=== PATIENT | female | born 1935 | race Caucasian/White ===

== ENCOUNTER 2018-06-12 12:53 | Inpatient (IN) | payer OTHER ==
[~2018-06-12] VITALS: Ht 154.9 cm; Wt 71.2 kg
[~2018-06-12 12:53] MED LIST: ASPIR 8181 MG; ATENOLOL50 MG PO; CORDARONE200 MG PO; COREG12.5 MG PO; COUMADIN5 MG PO; DAILY VITAMIN1 EAC3 PO; GLIPIZIDE ER2.5 M1 PO; Isosorbide Mononitrate PO; LIPITOR20 MG PO; LISINOPRIL10 MG PO; LOSARTAN POTASS25 MG PO; NORVASC10 MG PO; OMEPRAZOLE40 MG PO; Ranolazine PO; SYNTHROID75 MCG PO; VITAMIN D PO; Z.0.BENAZEPRIL HCL20 PO; Z.0.METOPROLOL SUCC5 PO; Z.0.NEURONTIN300 MG PO; Z.0.ZYRTEC10 M3 PO
[2018-06-12 13:51] LABS: BASOPHILS # (AUTO) 0.1 (0.0-0.1); BASOPHILS % 0.6 % (0.0-1.0); EOSINOPHILS # (AUTO) 0.1 (0.0-0.4); EOSINOPHILS % 0.9 % (0.0-6.0); LYMPHOCYTES # (AUTO) 1.2 (1.0-3.2); LYMPHOCYTES % 9.8 % (18.0-39.1); MEAN CORPUSCULAR HEMOGLOBIN 29.6 pg (28-32); MEAN CORPUSCULAR HGB CONC 33.3 g/dL (31-35); MEAN CORPUSCULAR VOLUME 88.9 fL (81-99); MONOCYTES # (AUTO) 0.9 (0.2-0.8); NEUTROPHILS # (AUTO) 10.3 (2.1-6.9); NEUTROPHILS % 81.3 % (38.7-80.0); PLATELET COUNT 258 x10e3/uL (140-360); RED BLOOD COUNT 4.05 x10e6/uL (3.6-5.1); RED CELL DISTRIBUTION WIDTH 13.6 % (11.7-14.4)
--- NOTE | 2018-06-12 14:00 | Diagnostic Imaging Report ---
PROCEDURE: CHEST SINGLE (PORTABLE) COMPARISON: The 07/24/2017, CT chest 07/25/2017. INDICATIONS: CHEST PAIN 1 WEEK FINDINGS: The lungs remain well-inflated. No focal consolidation, pleural effusion, or pneumothorax. 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 No pulmonary edema. No acute osseous abnormality. CONCLUSION: No acute cardiopulmonary abnormality. Dictated by: Alejandro Hurtado M.D. on 06/12/2018 at 14:05 Electronically approved by: Alejandro Hurtado M.D. on 06/12/2018 at 14:05
[2018-06-12 14:01] LABS: INR 1.86; PROTHROMBIN TIME 20.1 seconds (11.9-14.5)
[2018-06-12 14:02] LABS: PARTIAL THROMBOPLASTIN TIME 38.3 seconds (23.8-35.5)
[2018-06-12 14:10] LABS: ALBUMIN 3.5 g/dL (3.5-5.0); ALBUMIN/GLOBULIN RATIO 0.8 (0.8-2.0); ANION GAP 18.7 mmol/L (8-16); CALCIUM 9.1 mg/dL (8.4-10.2); CREATININE, SERUM 2.38 mg/dL (0.57-1.11); POTASSIUM 4.7 mmol/L (3.5-5.1)
[2018-06-12] MEDS ORDERED: WARFARIN SOD 2.5 MG TAB PO NR (14:15)
[2018-06-12 14:17] LABS: CREATINE KINASE MB 4.2 ng/mL (0-5.0)
[2018-06-12] MEDS ORDERED: NITROGLYCERIN 0.4 MG SUBL SL PRN (15:00)
[2018-06-12] MEDS ORDERED: FAMOTIDINE 20 MG TAB PO SCH (15:00)
[2018-06-12] MEDS ORDERED: ONDANSETRON HCL INJ 2 MG/ML VIAL IV PRN (15:00)
[2018-06-12] MEDS ORDERED: DIPHENHYDRAMINE HCL INJ 50 MG/ML VIAL ONE (15:48)
[2018-06-12] MEDS ORDERED: DIPHENHYDRAMINE HCL INJ 50 MG/ML VIAL IV NR (16:00)
[2018-06-12 16:15] VITALS: BP 182/79
[2018-06-12 17:05] VITALS: BP 182/79
[2018-06-12 17:17] VITALS: BP 182/79
[2018-06-12] MEDS ORDERED: ACETAMINOPHEN 325 MG TAB PO PRN (17:30)
[2018-06-12] MEDS ORDERED: MORPHINE SULFATE 2 MG/ML SYR IV PRN (17:30)
[2018-06-12] MEDS ORDERED: DEXTROSE 50% SYRINGE 50 ML IV PRN (17:30)
[2018-06-12] MEDS ORDERED: VITAMIN D 1.25 MG PO SCH (17:30)
[2018-06-12 19:05] VITALS: BP 158/67
[2018-06-12 20:32] LABS: CREATINE KINASE MB 3.9 ng/mL (0-5.0)
[2018-06-12 21:11] VITALS: BP 158/67
[2018-06-12] MEDS: INSULIN REGULAR, HUMAN 100 UNIT/1 ML 3ML VIAL SQ SCH (21:11)
[2018-06-13] VITALS (10 sets, daily range): BP systolic 123–151; BP diastolic 58–85
[2018-06-13 02:39] LABS: CREATINE KINASE MB 3.5 ng/mL (0-5.0)
[2018-06-13 05:50] LABS: BASOPHILS # (AUTO) 0.1 (0.0-0.1); BASOPHILS % 0.8 % (0.0-1.0); EOSINOPHILS # (AUTO) 0.2 (0.0-0.4); EOSINOPHILS % 2.1 % (0.0-6.0); HEMATOCRIT 33.9 % (34.2-44.1); HEMOGLOBIN 11.3 g/dL (12.0-16.0); LYMPHOCYTES # (AUTO) 1.8 (1.0-3.2); LYMPHOCYTES % 18.2 % (18.0-39.1); MEAN CORPUSCULAR HEMOGLOBIN 29.7 pg (28-32); MEAN CORPUSCULAR HGB CONC 33.3 g/dL (31-35); MEAN CORPUSCULAR VOLUME 89.2 fL (81-99); MONOCYTES % 9.7 % (4.4-11.3); NEUTROPHILS # (AUTO) 6.8 (2.1-6.9); NEUTROPHILS % 68.7 % (38.7-80.0); PLATELET COUNT 227 x10e3/uL (140-360); RED CELL DISTRIBUTION WIDTH 13.6 % (11.7-14.4)
[2018-06-13 06:03] LABS: INR 2.17; PROTHROMBIN TIME 22.7 seconds (11.9-14.5)
[2018-06-13 06:19] LABS: CREATINE KINASE MB 3.6 ng/mL (0-5.0)
[2018-06-13 06:33] LABS: ANION GAP 14.2 mmol/L (8-16); CALCIUM 8.9 mg/dL (8.4-10.2); CREATININE, SERUM 2.42 mg/dL (0.57-1.11); POTASSIUM 4.2 mmol/L (3.5-5.1)
[2018-06-13] MEDS: PANTOPRAZOLE SOD 40 MG TABEC PO SCH (07:30)
[2018-06-13] MEDS: INSULIN REGULAR, HUMAN 100 UNIT/1 ML 3ML VIAL SQ SCH ×4 (07:30→20:32)
[2018-06-13] MEDS: GLIPIZIDE 5 MG TAB ER PO SCH (08:00)
--- NOTE | 2018-06-13 08:58 | Consultation ---
DATE OF CONSULTATION: June 12, 2018 CARDIOLOGY CONSULTATION REQUESTING PHYSICIAN: Dr. Curran REASON FOR CONSULTATION: Chest pain. HPI: This is a pleasant, 82-year-old female that presented with chest pain. According to the patient, for the last 4 to 5 days, she has been having chest tightness that felt like dull heaviness at the center of the chest. She said the pain has been going on. It comes and it goes, and she decided to come into the emergency room for evaluation. She has a history of CAD with 2 stents placed in the past. Her it support manager is Dr. Weir at [facility], and it has been over 5 years since she had her last cardiac stress test. She denies any palpitations, any dizziness, any diaphoresis or headache. Troponin times 2 was negative. EKG showed sinus rhythm with no ST abnormalities. PAST MEDICAL HISTORY: CKD, paroxysmal Afib, hypothyroidism, hypertension, diabetes, hyperlipidemia and CAD. PAST SURGICAL HISTORY: Hysterectomy, cholecystectomy and cardiac stents times 2. FAMILY HISTORY: Positive for CAD. SOCIAL HISTORY: No smoking. No drinking. She lives at home with her daughter. MEDICATIONS: See med list. ALLERGIES: SHE IS ALLERGIC TO SULFA AND NITROFURANTOIN. REVIEW OF SYSTEMS: Negative, except as mentioned above. PHYSICAL EXAMINATION GENERAL: She is awake, alert and oriented times 3. VITALS: Temperature 98, heart rate 80, blood pressure 126/85, respirations 21. Oxygen saturation 96% on room air. HEENT: Mucous membranes moist. NECK: Supple. LUNGS: Bilaterally clear to auscultation. CARDIOVASCULAR: S1 and S2 present but irregular. ABDOMEN: Soft. EXTREMITIES: No edema. NEUROLOGIC: Intact. LABS: Sodium 140, potassium 4.2, chloride 109, CO2 21. BUN 38, creatinine 2.42. Glucose 112. White blood cells 9.91, hemoglobin 11.3, hematocrit 33.9, platelets 227. PT 22.7, PTT 38.3, INR 2.17. IMPRESSION 1. Chest pain. 2. Hypertension. 3. Coronary artery disease with stents. 4. History of paroxysmal atrial fibrillation and was anticoagulated with Coumadin. 5. Chronic kidney disease. 6. Diabetes. 7. Hyperlipidemia. 8. Hypothyroidism. ASSESSMENT AND PLAN: We will go ahead and check serial cardiac enzymes due to her symptoms and comorbidities. Will go ahead and set her up for [email or web address]. Will follow up based on the outcome of the Lexiscan stress test. We will go ahead and put the Coumadin on hold for now. Her heart rate is controlled. Will keep her n.p.o. and consent for stress test. Further cardiac workup pending clinical course. Thank you for this consultation. Dictated by Александр Craft NP. Job#: [id number]
[2018-06-13] MEDS: ASPIRIN 81 MG ENTERIC COATED PO SCH (09:00)
[2018-06-13] MEDS: ASPIRIN 81 MG CHEW TAB PO SCH (09:00)
[2018-06-13] MEDS ORDERED: REGADENOSON 0.4 MG/5 ML SYR IV ONE (09:32)
[2018-06-13] MEDS ORDERED: VIT D PO SCH (10:00)
--- NOTE | 2018-06-13 10:42 | History and Physical ---
PRIMARY CARE PHYSICIAN: [facility], Dr. Olvera. REASON FOR ADMISSION: Chest pain. HISTORY OF PRESENT ILLNESS: Ms. Claudia Cali is an 82-year-old female. She has a past medical history of hypertension, type 2 diabetes mellitus, hyperlipidemia, coronary artery disease, status post PCI, CKD, stage 4, and history of paroxysmal atrial fibrillation, on Coumadin for anticoagulation. She has followup with cardiology at [facility]. She presented to the emergency room yesterday evening secondary to episodic chest pain that has started about 3 days ago, which is intermittent and feels like pressure-like sensation, but denies any nausea, vomiting or any respiratory distress. EKG did not show any abnormality. She had serial troponins done that has been negative. Dr. Baires has seen her in the past, and he was consulted for evaluation. The patient is scheduled for stress test this morning. Currently, she is chest pain free. EKG showed evidence of sinus rhythm. REVIEW OF SYSTEM GENERAL: She is afebrile. Denies any focal weakness. HEENT: Eyes: No blurry vision. ENT: Denies any ear, nose, throat pain, or drainage. CARDIOVASCULAR: Does have chest pain. Denies any palpitations or syncopal episodes. RESPIRATORY: Denies any cough, shortness of breath, or acute infection. GI: Denies any nausea, vomiting, abdominal pain, or diarrhea. NEURO: Denies any headaches, dizziness or focal weakness. : Denies any dysuria, urinary frequency or urgency. MUSCULOSKELETAL: Denies any joint pain or swelling. INTEGUMENTARY: Denies any ulcers or rash. PAST MEDICAL HISTORY: Includes hypertension, type 2 diabetes mellitus, hyperlipidemia, CKD, stage 4, paroxysmal atrial fibrillation, CAD. PAST SURGICAL HISTORY: History of cholecystectomy and also stent placement. SOCIAL HISTORY: She lives at home with her daughter. No history of smoking, alcohol or drug use. ALLERGIES: SULFA DRUGS AND ALSO MACROBID. Hemoglobin A1c is pending at this time. INR is 2.17. ASSESSMENT: An 82-year-old female with: 1. Chest pain: Rule out for acute coronary syndrome. Scheduled for stress test today. 2. History of coronary artery disease: Status post percutaneous coronary intervention. 3. Paroxysmal atrial fibrillation: On Coumadin for anticoagulation. 4. Type 2 diabetes mellitus: Hemoglobin A1c is pending at this time. 5. Hyperlipidemia. 6. History of chronic kidney disease, stage 4. PLAN: The patient will be under observation status. Troponins have been negative thus far. CKD has been stable. Home medications have been resumed. Cardiology, Dr. Baires, has been consulted. She is scheduled for a stress test. Once cleared by cardiology, if the stress test is negative, she will likely be discharged home today. I have discussed with the patient regarding the code status. He is a full code. Her decision-maker is her daughter. Job#: [id number] [place] cc: DR. OLVERA AT [facility]
[2018-06-13] MEDS: ISOSORBIDE MONONITRATE 30 MG TAB CR PO SCH (12:00)
[2018-06-13] MEDS: ATENOLOL 50 MG TAB PO SCH (12:02)
[2018-06-13] MEDS: MULTIVITAMINS/MINERALS TAB PO SCH (12:02)
[2018-06-13] MEDS: AMLODIPINE BESYLATE 10 MG TAB PO SCH (12:02)
--- NOTE | 2018-06-13 13:49 | Discharge Summary ---
Please cancel the DC summary MTDD
[2018-06-13] MEDS: SODIUM CHLORIDE 0.9% 1000ML 1,000 ML IV SCH (17:00)
[2018-06-13] MEDS ORDERED: WARFARIN SOD 5 MG TAB PO SCH (17:00)
[2018-06-13] MEDS: ENOXAPARIN 30 MG/0.3 ML SYR SC SCH (17:19)
[2018-06-13] MEDS: ACETYLCYSTEINE 200 MG/1 ML 10ML VIAL PO SCH ×2 (21:00→21:05)
[2018-06-14] VITALS (7 sets, daily range): BP systolic 130–176; BP diastolic 63–74
[2018-06-14] MEDS: SODIUM CHLORIDE 0.9% 1000ML 1,000 ML IV SCH (01:25)
[2018-06-14 05:33] LABS: BASOPHILS # (AUTO) 0.1 (0.0-0.1); BASOPHILS % 0.8 % (0.0-1.0); EOSINOPHILS # (AUTO) 0.2 (0.0-0.4); EOSINOPHILS % 2.7 % (0.0-6.0); HEMATOCRIT 33.7 % (34.2-44.1); HEMOGLOBIN 10.9 g/dL (12.0-16.0); LYMPHOCYTES # (AUTO) 1.9 (1.0-3.2); MEAN CORPUSCULAR HEMOGLOBIN 29.8 pg (28-32); MEAN CORPUSCULAR HGB CONC 32.3 g/dL (31-35); MEAN CORPUSCULAR VOLUME 92.1 fL (81-99); MONOCYTES # (AUTO) 0.8 (0.2-0.8); MONOCYTES % 9.6 % (4.4-11.3); NEUTROPHILS # (AUTO) 5.4 (2.1-6.9); NEUTROPHILS % 63.4 % (38.7-80.0); PLATELET COUNT 214 x10e3/uL (140-360); RED BLOOD COUNT 3.66 x10e6/uL (3.6-5.1); RED CELL DISTRIBUTION WIDTH 13.3 % (11.7-14.4)
[2018-06-14 05:48] LABS: INR 2.25; PROTHROMBIN TIME 23.4 seconds (11.9-14.5)
[2018-06-14 05:54] LABS: ALBUMIN 2.9 g/dL (3.5-5.0); ALBUMIN/GLOBULIN RATIO 0.9 (0.8-2.0); ANION GAP 14.3 mmol/L (8-16); CALCIUM 8.5 mg/dL (8.4-10.2); CREATININE, SERUM 2.3 mg/dL (0.57-1.11); POTASSIUM 4.3 mmol/L (3.5-5.1)
[2018-06-14] MEDS: INSULIN REGULAR, HUMAN 100 UNIT/1 ML 3ML VIAL SQ SCH ×4 (07:30→20:34)
[2018-06-14] MEDS: ASPIRIN 81 MG ENTERIC COATED PO SCH (09:00)
[2018-06-14 09:52] LABS: CLARITY,URINE CLOUDY (CLEAR); COLOR,URINE YELLOW (YELLOW); KETONES,URINE NEGATIVE (NEGATIVE); LEUKOCYTE ESTERASE ,URINE 2+ (NEGATIVE); NITRITE,URINE NEGATIVE (NEGATIVE); PROTEIN,URINE DIPSTICK 1+ (NEGATIVE)
[2018-06-14 09:53] LABS: BILIRUBIN,URINE NEGATIVE (NEGATIVE); URINE UROBILINOGEN 0.2 mg/dL (0.2 - 1)
[2018-06-14 10:06] LABS: WBC,URINE (MAN) >50 /HPF (0-5)
[2018-06-14 10:11] LABS: BACTERIA,URINE MODERATE /HPF; EPITHELIAL CELLS,URINE MODERATE /LPF; TRANSITIONAL EPI CELLS,URINE FEW
--- NOTE | 2018-06-14 14:35 | Cardiology Report ---
DATE OF STUDY: June 13, 2018 LEXISCAN NUCLEAR STRESS TEST INDICATIONS: Chest pain. DESCRIPTION OF PROCEDURE: After informed consent, patient was brought to the stress lab. She was given 11 mCi of technetium 99 Myoview, and myocardial perfusion SPECT images were obtained in the horizontal long and short axis and vertical long axis. Subsequently, patient was given 0.4 mg Lexiscan over 10 seconds. Patient was given 27 mCi of technetium 99 Myoview, and myocardial perfusion SPECT images obtained in horizontal long and short axis and vertical long axis. Gated images were also obtained. Patient tolerated the procedure without any complications. REPORT: Baseline EKG shows sinus rhythm, 69 beats per minute, normal axis, normal intervals. No acute ST-T changes. PARAMETERS 1. Resting heart rate 63 beats per minute. 2. Maximum heart rate 97 beats per minute. 3. Resting blood pressure 179/65 mmHg. 4. Maximum blood pressure 184/59 mmHg. REASON FOR TERMINATION: End point attained. INTERPRETATION 1. Negative for chest pain. 2. Negative for arrhythmias. 3. Blood pressure response consistent with Lexiscan. 4. No significant ST-T changes seen during Lexiscan infusion compared to baseline. 5. Analysis of SPECT images reveals a small area of decreased radioisotope uptake in the apical wall during stress which reverses during rest. CONCLUSIONS 1. This study demonstrates small area of apical wall ischemia. 2. No wall motion abnormalities noted. 3. Overall ejection fraction is 71%. Job#: [id number] FRANCIS
[2018-06-14] MEDS: ATENOLOL 50 MG TAB PO SCH (16:00)
[2018-06-14] MEDS: GLIPIZIDE 5 MG TAB ER PO SCH (16:00)
[2018-06-14] MEDS: PANTOPRAZOLE SOD 40 MG TABEC PO SCH (16:00)
[2018-06-14] MEDS: AMLODIPINE BESYLATE 10 MG TAB PO SCH (16:00)
[2018-06-14] MEDS: ISOSORBIDE MONONITRATE 30 MG TAB CR PO SCH (16:00)
[2018-06-14] MEDS: ACETYLCYSTEINE 200 MG/1 ML 10ML VIAL PO SCH ×2 (16:00→21:00)
[2018-06-14] MEDS: ASPIRIN 81 MG CHEW TAB PO SCH (16:00)
[2018-06-14] MEDS: MULTIVITAMINS/MINERALS TAB PO SCH (16:00)
[2018-06-14] MEDS: ENOXAPARIN 30 MG/0.3 ML SYR SC SCH (16:24)
--- NOTE | 2018-06-14 18:43 | Consultation ---
DATE OF CONSULTATION: June 14, 2018 HISTORY OF PRESENT ILLNESS: This is an 82-year-old female known to our nephrology service. She sees my associate, Dr. Coe, for chronic kidney disease stage 4. Has history of prior CA, history of a percutaneous intervention with 2 stents in the past. Here lately she has been having dyspnea on exertion with no chest pain. Has been admitted with plans for possible cardiac cath. Renal has been consulted for evaluation of kidney failure as well as evaluate the risk for cardiac cath. Patient awake and alert. Denies any nausea, vomiting, headache, fever, chills, chest pain or shortness of breath. Currently on ondansetron, pantoprazole, insulin, isosorbide, glipizide, Enoxaparin, , aspirin, amlodipine and Tylenol p.r.n. For dose schedule please see EMR. ALLERGIES: TO SULFA AND NITROFURANTOIN. PAST MEDICAL HISTORY: Type 2 diabetes. Coronary artery disease. Chronic kidney disease stage 4. Hypertensive diabetic nephropathy. SOCIAL HISTORY: Does not smoke or drink. FAMILY HISTORY: Significant for hypertension. Patient is also on Coumadin for atrial fibrillation. PHYSICAL EXAMINATION: GENERAL: Awake, alert, laying supine and in no apparent distress. VITALS: Blood pressure 153/63, pulse rate 54, afebrile. The patient's heart rhythm is regular and pulse is regular. Respiratory rate 14. HEAD AND NECK: Corneae clear. Mucosa moist. Neck veins flat. LUNGS: Clear. No rales. HEART: Soft 1-2/6 ejection systolic murmur heard over the left and right sternal border and mitral area. No gallops. ABDOMEN: Soft and nontender. LOWER EXTREMITY EXAMINATION: No edema. IMPRESSION 1. Coronary artery disease with dyspnea on exertion. 2. Underlying chronic kidney disease stage 4. RECOMMENDATIONS: Patient at moderate to high risk for dye-induced nephropathy. Discussed with patient. Discussed with Dr. Baires. He will then review stress test results with the patient tomorrow and then decide whether they are going to proceed with cardiac cath or not. Risk of kidney failure from contrast nephropathy and possibility of dialysis temporary or permanent has been discussed with the patient. Job#: [id number]
[2018-06-15 00:25] VITALS: BP 133/78
[2018-06-15 04:00] VITALS: BP 135/65
[2018-06-15 05:30] LABS: INR 1.83; PROTHROMBIN TIME 19.9 seconds (11.9-14.5)
[2018-06-15 05:43] LABS: ANION GAP 12.6 mmol/L (8-16); CALCIUM 8.6 mg/dL (8.4-10.2); CREATININE, SERUM 2.01 mg/dL (0.57-1.11); POTASSIUM 4.6 mmol/L (3.5-5.1)
[2018-06-15] MEDS: INSULIN REGULAR, HUMAN 100 UNIT/1 ML 3ML VIAL SQ SCH ×2 (07:30→11:30)
[2018-06-15 08:00] VITALS: BP 142/64
[2018-06-15] MEDS: MULTIVITAMINS/MINERALS TAB PO SCH (09:00)
[2018-06-15] MEDS: ATENOLOL 50 MG TAB PO SCH (09:00)
[2018-06-15] MEDS: ASPIRIN 81 MG ENTERIC COATED PO SCH (09:00)
[2018-06-15] MEDS: GLIPIZIDE 5 MG TAB ER PO SCH (09:00)
[2018-06-15] MEDS: PANTOPRAZOLE SOD 40 MG TABEC PO SCH (09:00)
[2018-06-15] MEDS: ASPIRIN 81 MG CHEW TAB PO SCH (09:00)
[2018-06-15] MEDS: AMLODIPINE BESYLATE 10 MG TAB PO SCH (09:00)
[2018-06-15] MEDS: ISOSORBIDE MONONITRATE 30 MG TAB CR PO SCH (09:00)
[2018-06-15 12:00] VITALS: BP 136/67
[2018-06-15] MEDS ORDERED: CIPRO500 MG PO (14:23)
[2018-06-15] MEDS ORDERED: WARFARIN SOD 5 MG TAB PO SCH (17:00)
[2018-06-15] MEDS ORDERED: ATORVASTATIN 20 MG TAB PO SCH (21:00)
== END 2018-06-15 15:25 | disposition home or self-care (01) | DRG 313 ==
LOC: ER 12:53 → ERHOLD 15:01 → IMCU 15:55 → OBSVTOIN 06-14 10:11 → MED/SURG2 06-14 11:08
PROVIDERS: ADMIT Internal Medicine; ATTEND Internal Medicine
DX: R07.9 Chest pain, unspecified (principal); I13.0 Hypertensive heart and chronic kidney disease with heart failure and stage 1 through stage 4 chronic kidney disease, or unspecified chronic kidney disease; N18.4 Chronic kidney disease, stage 4 (severe); I25.89 Other forms of chronic ischemic heart disease; I25.10 Atherosclerotic heart disease of native coronary artery without angina pectoris; I50.9 Heart failure, unspecified; Z95.5 Presence of coronary angioplasty implant and graft; I48.0 Paroxysmal atrial fibrillation; Z79.01 Long term (current) use of anticoagulants; E78.5 Hyperlipidemia, unspecified; Z88.3 Allergy status to other anti-infective agents; Z88.2 Allergy status to sulfonamides; E03.9 Hypothyroidism, unspecified; I25.2 Old myocardial infarction; E11.21 Type 2 diabetes mellitus with diabetic nephropathy; R94.39 Abnormal result of other cardiovascular function study
CPT/HCPCS: 36415; 71045; 78452; 80048; 80053; 80061; 81001; 82550; 82553; 82948; 83036; 83880; 84484; 85025; 85610; 85730; 87086; 87186; 93005; 93017; 93306; 96372; 99284; A9502; G0378; J1200; J1650; J2405; J7030

== ENCOUNTER 2018-09-26 11:03 | Emergency (ER) | payer OTHER ==
[~2018-09-26] VITALS: Ht 154.9 cm; Wt 65.8 kg
[~2018-09-26 11:03] MED LIST changes: +CIPRO500 MG PO
[2018-09-26] MEDS ORDERED: SODIUM CHLORIDE 0.9% 500ML 500 ML IV STA (11:24)
[2018-09-26] MEDS ORDERED: MORPHINE SULFATE 2 MG/ML SYR IV PRN (11:30)
[2018-09-26] MEDS ORDERED: FAMOTIDINE 20 MG/2 ML VIAL IV ONE (11:30)
[2018-09-26] MEDS ORDERED: ONDANSETRON HCL INJ 2 MG/ML VIAL IV ONE (11:30)
[2018-09-26] MEDS ORDERED: MORPHINE SULFATE 2 MG/ML SYR IV STA (11:33)
[2018-09-26] MEDS ORDERED: ONDANSETRON HCL INJ 2 MG/ML VIAL IV STA (11:33)
[2018-09-26] MEDS ORDERED: CEFTRIAXONE SOD 1 GM VIAL IV NR (11:45)
[2018-09-26 12:15] LABS: BASOPHILS # (AUTO) 0.1 (0.0-0.1); BASOPHILS % 0.6 % (0.0-1.0); EOSINOPHILS % 0.3 % (0.0-6.0); HEMATOCRIT 38.4 % (34.2-44.1); HEMOGLOBIN 12.7 g/dL (12.0-16.0); LYMPHOCYTES # (AUTO) 0.9 (1.0-3.2); LYMPHOCYTES % 7.8 % (18.0-39.1); MEAN CORPUSCULAR HEMOGLOBIN 29.6 pg (28-32); MEAN CORPUSCULAR HGB CONC 33.1 g/dL (31-35); MEAN CORPUSCULAR VOLUME 89.5 fL (81-99); MONOCYTES # (AUTO) 0.7 (0.2-0.8); MONOCYTES % 6.1 % (4.4-11.3); NEUTROPHILS # (AUTO) 9.8 (2.1-6.9); NEUTROPHILS % 84.9 % (38.7-80.0); PLATELET COUNT 251 x10e3/uL (140-360); RED BLOOD COUNT 4.29 x10e6/uL (3.6-5.1); RED CELL DISTRIBUTION WIDTH 13.6 % (11.7-14.4)
--- NOTE | 2018-09-26 12:28 | Diagnostic Imaging Report ---
EXAMINATION: CT of the abdomen and pelvis without contrast. TECHNIQUE: Spiral CT images of the abdomen and pelvis were performed from the lung bases to the lesser trochanters. No intravenous contrast was given per renal stone protocol. Coronal and sagittal reformatted images were obtained. COMPARISON: None. CLINICAL HISTORY:Abdominal pain, right flank pain, right lower quadrant pain DISCUSSION: ABSENCE OF INTRAVENOUS CONTRAST DECREASES SENSITIVITY FOR DETECTION OF FOCAL LESIONS AND VASCULAR PATHOLOGY. ABDOMEN/PELVIS: LOWER THORAX: Right lower lobe calcified granuloma. Otherwise unremarkable. HEPATOBILIARY:No focal hepatic lesion or intrahepatic biliary ductal dilatation. The gallbladder has been removed. SPLEEN: No splenomegaly. Coarse calcified granulomata. Small splenule within the hilum. PANCREAS: No focal masses or ductal dilatation. ADRENALS: No adrenal nodules. KIDNEYS/URETERS: Scattered right renal cysts, average attenuation less than 20 Hounsfield units. No hydronephrosis. No renal, ureteral, or bladder calculi. No perinephric inflammatory change. PELVIC ORGANS/BLADDER: The urinary bladder is incompletely distended but otherwise unremarkable. Uterus is not identified and has presumably been removed. No adnexal mass. PERITONEUM/RETROPERITONEUM: No ascites. No pneumoperitoneum. LYMPH NODES: No pelvic sidewall, retroperitoneal, or mesenteric lymphadenopathy. VESSELS: Limited evaluation in the absence of intravenous contrast. There is extensive atherosclerotic calcification of the abdominal aorta, major branch vessels, and iliac arterial systems. Presence of any stenosis cannot be determined in the absence of intravenous contrast. 1.1 cm peripherally calcified splenic artery aneurysm seen on series 3 image 25. GI TRACT: There are innumerable diverticula along the course of the sigmoid colon without wall thickening or adjacent inflammation. Diverticula of lesser concentration are identified along the remainder of the large bowel, again without findings of diverticulitis. The appendix is normal. There is no small bowel dilatation to suggest obstruction. BONES AND SOFT TISSUES: No osseous destructive lesions. Multilevel degenerative disc disease and degenerative facet arthropathy of the lumbar spine. 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 Diffuse muscular atrophy. IMPRESSION: No acute intra-abdominal or pelvic CT abnormalities. Specifically, no evidence of urolithiasis, pyelonephritis, or acute appendicitis. Atherosclerotic vascular disease with a 1.1 cm peripherally calcified splenic artery aneurysm. CT angiography of the abdomen and one year is suggested to assess for stability. Extensive large bowel diverticulosis without CT findings of diverticulitis. Signed by: Dr. Alejandro Hurtado M.D. on 09/26/2018 12:25 PM
[2018-09-26 12:31] LABS: ALBUMIN 3.3 g/dL (3.5-5.0); ALBUMIN/GLOBULIN RATIO 0.8 (0.8-2.0); CALCIUM 9.3 mg/dL (8.4-10.2); CREATININE, SERUM 2.22 mg/dL (0.57-1.11)
[2018-09-26] MEDS ORDERED: HYDROMORPHONE 2MG/ML 2 MG/ML ML ONE (13:06)
[2018-09-26 13:41] LABS: CLARITY,URINE SL CLOUDY (CLEAR); COLOR,URINE YELLOW (YELLOW); LEUKOCYTE ESTERASE ,URINE NEGATIVE (NEGATIVE); NITRITE,URINE NEGATIVE (NEGATIVE); PROTEIN,URINE DIPSTICK NEGATIVE (NEGATIVE)
[2018-09-26 13:42] LABS: BILIRUBIN,URINE NEGATIVE (NEGATIVE); KETONES,URINE NEGATIVE (NEGATIVE); URINE UROBILINOGEN 0.2 mg/dL (0.2 - 1)
[2018-09-26 13:59] LABS: RBC,URINE 0-5 /HPF (0-5)
== END 2018-09-26 16:38 | disposition home or self-care (01) ==
LOC: ER 11:03
DX: R10.31 Right lower quadrant pain (principal); R11.0 Nausea
CPT/HCPCS: 36415; 74176; 80053; 81001; 85025; 87086; 99284; J0696; J1170; J2270; J2405; J7040

== ENCOUNTER 2019-08-18 06:03 | Emergency (ER) | payer OTHER ==
[~2019-08-18] VITALS: Ht 154.9 cm; Wt 65.8 kg
== END 2019-08-18 06:28 | disposition home or self-care (01) ==
LOC: ER 06:03
DX: S16.1XXA Strain of muscle, fascia and tendon at neck level, initial encounter (principal); I10 Essential (primary) hypertension; E11.9 Type 2 diabetes mellitus without complications; N18.9 Chronic kidney disease, unspecified; E78.5 Hyperlipidemia, unspecified; Z95.5 Presence of coronary angioplasty implant and graft
CPT/HCPCS: 93005; 99283

== ENCOUNTER 2020-06-01 10:12 | Emergency (ER) | payer OTHER ==
[~2020-06-01] VITALS: Ht 154.9 cm; Wt 65.8 kg
[2020-06-01] MEDS ORDERED: ONDANSETRON HCL INJ 2MG/ML 2ML 2 MG/ML VIAL IV STA (10:29)
[2020-06-01] MEDS ORDERED: CEFTRIAXONE SOD 1 GM/NS 50 ML 50 ML IV ONE (10:30)
--- NOTE | 2020-06-01 10:36 | Emergency Department Note ---
History of Present Illnes History of Present Illness Chief Complaint: General Medicine Complaints History of Present Illness This is a 84 year old female arrives to the ED with complaints of generalized malaise and weakness for several days. Patient states she spoke to her primary care doctor who started her on doxycycline because she had complaints of dysuria. She states she had a telemedicine visit with her PCP. Patient states THE doxycycline gave her a yeast infection, states she stopped taking the doxycycline and instead took the 1 dose of fluconazole as prescribed to her. Patient states she is concerned because she is on Coumadin for atrial fibrillation and is worried that her INR may be affected. Patient complaining of generalized malaise and weakness but denies any fever, cough, pain. Onset (how long ago): day(s) Severity: mild Onset quality: gradual Duration (how long): day(s) Timing of current episode: intermittent Progression: unchanged Chronicity: new Context: Reports recent illness Relieving factors: none Exacerbating factors: none Past Medical/Family History Physician Review I have reviewed the patient's past medical and family history. Any updates have been documented here. Past Medical History Past Medical History: Hypertension, Diabetes, CHF, GA, A-Fib, CAD, UTI's, Hyperlipedemia, Chronic Kidney Disease Other Medical History: RENAL INSUFFICIENCY KIDNEY FAILURE Past Surgical History: Cholecysctectomy, Hysterectomy, PCI, Back Surgery Other Surgery: BACK SURGERY CARDIAC STENT X2 Social History Smoking Cessation: Never Smoker Counseling Performed: No Alcohol Use: Social Physically hurt or threatened: No Other Last Tetanus: UNKNOWN Review of Systems Review of Systems Constitutional: Reports no symptoms, Reports as per HPI, Reports malaise, Reports weakness EENTM: Reports no symptoms Cardiovascular: Reports no symptoms Respiratory: Reports no symptoms Gastrointestinal: Reports no symptoms Genitourinary: Reports as per HPI, Reports dysuria Musculoskeletal: Reports no symptoms Integumentary: Reports no symptoms Neurological: Reports no symptoms Psychological: Reports no symptoms Endocrine: Reports no symptoms Hematological/Lymphatic: Reports no symptoms Physical Exam Related Data Allergies: Coded Allergies: meloxicam (Verified Allergy, Intermediate, LARGE HIVES, 09/26/18) Sulfa (Sulfonamide Antibiotics) (Verified Allergy, Unknown, 09/26/18) nitrofurantoin (Verified Allergy, Unknown, 09/26/18) Vital signs reviewed: Yes Physical Exam CONSTITUTIONAL Constitutional: Present well-developed, Present well-nourished HENT HENT: Present normocephalic, Present atraumatic, Present oropharynx clear/moist, Present nose normal HENT L/R: Present left ext ear normal, Present right ext ear normal EYES Eyes: Reports PERRL, Reports conjunctivae normal NECK Neck: Present ROM normal PULMONARY Pulmonary: Present effort normal, Present breath sounds normal CARDIOVASCULAR Cardiovascular: Present regular rhythm, Present heart sounds normal, Present capillary refill normal, Present normal rate GASTROINTESTINAL Abdominal: Present soft, Present nontender, Present bowel sounds normal GENITOURINARY Genitourinary: Present exam deferred SKIN Skin: Present warm, Present dry MUSCULOSKELETAL Musculoskeletal: Present ROM normal NEUROLOGICAL Neurological: Present alert, Present oriented x 3, Present no gross motor or sensory deficits PSYCHOLOGICAL Psychological: Present mood/affect normal, Present judgement normal Results Laboratory Lab results reviewed: Yes Laboratory comments Laboratory Tests Test 06/01/20 11:00 06/01/20 10:45 Urine Color Yellow (YELLOW) Urine Clarity Sl cloudy (CLEAR) Urine pH 5 (5 - 7) Urine Specific Radiant 1.020 (1.010-1.025) Urine Protein >=300 (NEGATIVE) Urine Glucose (UA) Negative (NEGATIVE) Urine Ketones Negative (NEGATIVE) Urine Blood Moderate (NEGATIVE) Urine Nitrite Negative (NEGATIVE) Urine Bilirubin Negative (NEGATIVE) Urine Urobilinogen 0.2 mg/dL (0.2 - 1) Urine Leukocyte Esterase Negative (NEGATIVE) Urine RBC 11-20 /HPF (0-5) Urine WBC 11-20 /HPF (0-5) Urine Epithelial Cells Few /LPF (NONE) Urine Bacteria Rare /HPF (NONE) White Blood Count 9.00 x10e3/uL (4.8-10.8) Red Blood Count 4.30 x10e6/uL (3.6-5.1) Hemoglobin 11.7 g/dL (12.0-16.0) Hematocrit 36.5 % (34.2-44.1) Mean Corpuscular Volume 84.9 fL (81-99) Mean Corpuscular Hemoglobin 27.2 pg (28-32) Mean Corpuscular Hemoglobin Concent 32.1 g/dL (31-35) Red Cell Distribution Width 14.2 % (11.7-14.4) Platelet Count 251 x10e3/uL (140-360) Neutrophils (%) (Auto) 79.9 % (38.7-80.0) Lymphocytes (%) (Auto) 12.0 % (18.0-39.1) Monocytes (%) (Auto) 6.7 % (4.4-11.3) Eosinophils (%) (Auto) 0.6 % (0.0-6.0) Basophils (%) (Auto) 0.6 % (0.0-1.0) Neutrophils # (Auto) 7.2 (2.1-6.9) Lymphocytes # (Auto) 1.1 (1.0-3.2) Monocytes # (Auto) 0.6 (0.2-0.8) Eosinophils # (Auto) 0.1 (0.0-0.4) Basophils # (Auto) 0.1 (0.0-0.1) Absolute Immature Granulocyte (auto 0.02 x10e3/uL (0-0.1) Prothrombin Time 23.6 seconds (11.9-14.5) Prothromb Time International Ratio 1.95 Sodium Level 141 mmol/L (136-145) Potassium Level 3.9 mmol/L (3.5-5.1) Chloride Level 113 mmol/L (98-107) Carbon Dioxide Level 21 mmol/L (22-29) Anion Gap 10.9 mmol/L (8-16) Blood Urea Nitrogen 39 mg/dL (7-26) Creatinine 2.56 mg/dL (0.57-1.11) Estimat Glomerular Filtration Rate 18 ML/MIN (60-) BUN/Creatinine Ratio 15 (6-25) Glucose Level 153 mg/dL (74-118) Calcium Level 8.8 mg/dL (8.4-10.2) Total Bilirubin 0.3 mg/dL (0.2-1.2) Aspartate Amino Transf (AST/SGOT) 18 IU/L (5-34) Alanine Aminotransferase (ALT/SGPT) 19 IU/L (0-55) Alkaline Phosphatase 115 IU/L (40-150) Creatine Kinase 121 IU/L (29-168) Creatine Kinase MB 4.50 ng/mL (0-5.0) Troponin I 0.026 ng/mL (0-0.300) Total Protein 7.1 g/dL (6.5-8.1) Albumin 3.4 g/dL (3.5-5.0) Globulin 3.7 g/dL (2.3-3.5) Albumin/Globulin Ratio 0.9 (0.8-2.0) Imaging Imaging results reviewed: Yes Assessment & Plan Medical Decision Making MDM 84-year-old female arrived to the ED with complaints of generalized malaise. Urine showed wbc's and rbc's and patient may have a residual urinary tract infection. Labwork otherwise unremarkable. Patient's INR noted. Patient encouraged to follow up with PCP no further ER intervention needed at this time. Assessment & Plan Final Impression: (1) UTI (urinary tract infection) Depart Disposition: HOME, SELF-alf Meds Active Scripts Cephalexin Monohydrate (KEFLEX) 500 Mg Capsule, 500 MG PO Q6H, #40 TAB 0 Refills Prov:HORACE MOORE DO 06/01/20 Warfarin Sodium (COUMADIN) 5 Mg Tablet, 5 MG PO QD17 for 30 Days Prov:NASIR CORTEZ 06/23/16 [Isosorbide Mononitrate] 30 MG TABCR No Conflict Check, 60 MG PO DAILY for 30 Days Prov:NASIR CORTEZ 06/23/16 Reported Medications Ciprofloxacin Hcl (CIPRO) 500 Mg Tablet, 500 MG PO Q12H, #30 TAB 06/15/18 Aspirin (ASPIR 81) 81 Mg Tablet.dr, 81 MG 07/24/17 Atenolol (ATENOLOL) 50 Mg Tablet, 0.5 TAB PO DAILY 07/24/17 Multivitamin (DAILY VITAMIN) 1 Each Tablet, PO DAILY 01/31/13 Amlodipine Besylate (NORVASC) 10 Mg Tab, 10 MG PO DAILY 01/31/13 [Vitamin D] No Conflict Check, 1.25 MG PO ONCE A MONTH 01/31/13 Omeprazole (OMEPRAZOLE) 40 Mg Capsule.dr, 40 MG PO DAILY 01/31/13 Glipizide (Glipizide Er) 2.5 Mg Tab.er.24, 5 MG PO DAILY 03/28/11 HORACE MOORE DO Jun 01, 2020 10:36
[2020-06-01 10:55] LABS: BASOPHILS # (AUTO) 0.1 (0.0-0.1); BASOPHILS % 0.6 % (0.0-1.0); EOSINOPHILS # (AUTO) 0.1 (0.0-0.4); EOSINOPHILS % 0.6 % (0.0-6.0); HEMATOCRIT 36.5 % (34.2-44.1); HEMOGLOBIN 11.7 g/dL (12.0-16.0); LYMPHOCYTES # (AUTO) 1.1 (1.0-3.2); MEAN CORPUSCULAR HEMOGLOBIN 27.2 pg (28-32); MEAN CORPUSCULAR HGB CONC 32.1 g/dL (31-35); MEAN CORPUSCULAR VOLUME 84.9 fL (81-99); MONOCYTES # (AUTO) 0.6 (0.2-0.8); MONOCYTES % 6.7 % (4.4-11.3); NEUTROPHILS # (AUTO) 7.2 (2.1-6.9); NEUTROPHILS % 79.9 % (38.7-80.0); PLATELET COUNT 251 x10e3/uL (140-360); RED CELL DISTRIBUTION WIDTH 14.2 % (11.7-14.4)
[2020-06-01 11:06] LABS: INR 1.95; PROTHROMBIN TIME 23.6 seconds (11.9-14.5)
[2020-06-01 11:14] LABS: ALBUMIN 3.4 g/dL (3.5-5.0); ALBUMIN/GLOBULIN RATIO 0.9 (0.8-2.0); ANION GAP 10.9 mmol/L (8-16); CALCIUM 8.8 mg/dL (8.4-10.2); CREATININE, SERUM 2.56 mg/dL (0.57-1.11); POTASSIUM 3.9 mmol/L (3.5-5.1)
[2020-06-01 11:20] LABS: CREATINE KINASE MB 4.5 ng/mL (0-5.0)
--- NOTE | 2020-06-01 11:23 | Diagnostic Imaging Report ---
EXAMINATION: CHEST SINGLE (PORTABLE) INDICATION: Weakness COMPARISON: None FINDINGS: LINES/TUBES:None LUNGS:The lungs are well-inflated. No focal consolidation or pulmonary edema. PLEURA:No pleural effusion or pneumothorax. MEDIASTINUM:The cardiomediastinal silhouette appears normal in size and shape. BONES/SOFT TISSUES:No acute osseous injury. ABDOMEN:No free air under the diaphragm. IMPRESSION: No focal pneumonia or pulmonary edema. Signed by: Jany Goldman MD on 06/01/2020 11:19 AM
[2020-06-01 12:30] LABS: COLOR,URINE YELLOW (YELLOW)
[2020-06-01 12:31] LABS: BILIRUBIN,URINE NEGATIVE (NEGATIVE); CLARITY,URINE SL CLOUDY (CLEAR); KETONES,URINE NEGATIVE (NEGATIVE); LEUKOCYTE ESTERASE ,URINE NEGATIVE (NEGATIVE); NITRITE,URINE NEGATIVE (NEGATIVE); PROTEIN,URINE DIPSTICK >=300 (NEGATIVE); URINE UROBILINOGEN 0.2 mg/dL (0.2 - 1)
[2020-06-01 12:38] LABS: BACTERIA,URINE RARE /HPF; EPITHELIAL CELLS,URINE FEW /LPF
[2020-06-01 12:54] VITALS: BP 157/59
[2020-06-01] MEDS ORDERED: KEFLEX500 MG PO (12:54)
== END 2020-06-01 13:16 | disposition home or self-care (01) ==
LOC: ER 10:21
DX: N39.0 Urinary tract infection, site not specified (principal); R53.81 Other malaise; I10 Essential (primary) hypertension; E11.9 Type 2 diabetes mellitus without complications; I50.9 Heart failure, unspecified; E78.5 Hyperlipidemia, unspecified; I48.91 Unspecified atrial fibrillation; I25.10 Atherosclerotic heart disease of native coronary artery without angina pectoris; N18.9 Chronic kidney disease, unspecified; I25.2 Old myocardial infarction
CPT/HCPCS: 36415; 71045; 80053; 81001; 82550; 82553; 84484; 85025; 85610; 87086; 93005; 99284; J0696; J2405

== ENCOUNTER 2022-08-17 10:11 | Observation (INO) | payer MEDICARE, OTHER ==
[~2022-08-17] VITALS: Ht 154.9 cm; Wt 65.8 kg
[~2022-08-17 10:11] MED LIST changes: +KEFLEX500 MG PO
[2022-08-17] MEDS ORDERED: SODIUM CHLORIDE FLUSH 10 ML SYR IV PRN (10:45)
[2022-08-17 10:47] LABS: BASOPHILS # (AUTO) 0.1 (0.0-0.1); BASOPHILS % 0.6 % (0.0-1.0); EOSINOPHILS % 0.4 % (0.0-6.0); HEMATOCRIT 41.8 % (34.2-44.1); HEMOGLOBIN 12.9 g/dL (12.0-16.0); LYMPHOCYTES # (AUTO) 0.8 (1.0-3.2); LYMPHOCYTES % 8.8 % (18.0-39.1); MEAN CORPUSCULAR HEMOGLOBIN 29.4 pg (28-32); MEAN CORPUSCULAR HGB CONC 30.9 g/dL (31-35); MEAN CORPUSCULAR VOLUME 95.2 fL (81-99); MONOCYTES # (AUTO) 0.5 (0.2-0.8); MONOCYTES % 5.9 % (4.4-11.3); NEUTROPHILS # (AUTO) 7.2 (2.1-6.9); NEUTROPHILS % 84.1 % (38.7-80.0); PLATELET COUNT 213 x10e3/uL (140-360); RED BLOOD COUNT 4.39 x10e6/uL (3.6-5.1); RED CELL DISTRIBUTION WIDTH 12.8 % (11.7-14.4)
[2022-08-17 10:58] LABS: INR 1.07; PROTHROMBIN TIME 14.9 seconds (11.9-14.5)
[2022-08-17 10:59] LABS: PARTIAL THROMBOPLASTIN TIME 37.9 seconds (23.8-35.5)
[2022-08-17 11:05] LABS: ALBUMIN 3.7 g/dL (3.5-5.0); ANION GAP 18.3 mmol/L (8-16); CALCIUM 9.5 mg/dL (8.4-10.2); CREATININE, SERUM 2.52 mg/dL (0.57-1.11); POTASSIUM 4.3 mmol/L (3.5-5.1)
[2022-08-17 11:14] LABS: AMPHETAMINES SCREEN,URINE NEGATIVE (NEGATIVE); BENZODIAZEPINES SCREEN,URINE NEGATIVE (NEGATIVE); CLARITY,URINE CLEAR (CLEAR); COLOR,URINE YELLOW (YELLOW); KETONES,URINE NEGATIVE (NEGATIVE); LEUKOCYTE ESTERASE ,URINE NEGATIVE (NEGATIVE); NITRITE,URINE NEGATIVE (NEGATIVE); PHENCYCLIDINE SCREEN,URINE NEGATIVE (NEGATIVE); PROTEIN,URINE DIPSTICK 2+ (NEGATIVE); URINE UROBILINOGEN 0.2 mg/dL (0.2 - 1)
[2022-08-17 11:27] LABS: WBC,URINE (MAN) 0-5 /HPF (0-5)
[2022-08-17 11:28] LABS: BACTERIA,URINE FEW /HPF; EPITHELIAL CELLS,URINE FEW /LPF; RBC,URINE 0-5 /HPF (0-5)
[2022-08-17] MEDS ORDERED: DEXTROSE 50% SYRINGE 50 ML IV PRN ×2 (12:30→15:45)
[2022-08-17] MEDS ORDERED: ONDANSETRON HCL INJ 2MG/ML 2ML 2 MG/ML VIAL IV PRN ×2 (12:30→16:00)
[2022-08-17] MEDS ORDERED: ASPIRIN 81 MG CHEW TAB PO ONE (12:45)
[2022-08-17] MEDS ORDERED: CLONIDINE HCL 0.1 MG TAB PO PRN (16:00)
[2022-08-17] MEDS ORDERED: ACETAMINOPHEN 325 MG TAB PO PRN (16:00)
[2022-08-17] MEDS ORDERED: TOPROL XL25 MG PO (16:12)
[2022-08-17] MEDS ORDERED: FEROSUL325 MG PO (16:12)
[2022-08-17] MEDS ORDERED: preservision PO (16:12)
[2022-08-17] MEDS ORDERED: ELIQUIS2.5 MG PO (16:12)
[2022-08-17] MEDS ORDERED: FERROUS SULFAT324 MG PO (16:12)
[2022-08-17] MEDS ORDERED: B-121000 MC2 PO (16:12)
[2022-08-17] MEDS: INSULIN REGULAR, HUMAN 100 UNIT/1 ML SQ SCH ×2 (16:14→21:07)
[2022-08-17] MEDS ORDERED: INSULIN REGULAR, HUMAN 100 UNIT/1 ML SQ SCH (16:30)
[2022-08-17] MEDS: SODIUM CHLORIDE 0.9% 1000ML 1,000 ML IV SCH (16:55)
[2022-08-17] MEDS: AMIODARONE HCL 200 MG TAB PO SCH (16:56)
[2022-08-17] MEDS: METOPROLOL SUCCINATE 25 MG TAB XL PO SCH (16:56)
[2022-08-17] MEDS: APIXAB 2.5 MG TABLET PO SCH (16:56)
[2022-08-17 18:20] VITALS: BP 162/62
[2022-08-17 18:43] LABS: CREATINE KINASE MB 5.3 ng/mL (0-5.0)
[2022-08-17 20:00] VITALS: BP 150/79
[2022-08-17] MEDS ORDERED: ATORVASTATIN 20 MG TAB PO SCH (21:00)
[2022-08-17 21:10] VITALS: BP 150/79
[2022-08-18] VITALS: BP 151/85
[2022-08-18 04:00] VITALS: BP 143/45
[2022-08-18] MEDS: SODIUM CHLORIDE 0.9% 1000ML 1,000 ML IV SCH (04:06)
[2022-08-18 06:07] LABS: BASOPHILS # (AUTO) 0.1 (0.0-0.1); BASOPHILS % 0.8 % (0.0-1.0); EOSINOPHILS # (AUTO) 0.1 (0.0-0.4); EOSINOPHILS % 1.3 % (0.0-6.0); HEMATOCRIT 36.3 % (34.2-44.1); HEMOGLOBIN 11.9 g/dL (12.0-16.0); LYMPHOCYTES # (AUTO) 1.5 (1.0-3.2); LYMPHOCYTES % 19.4 % (18.0-39.1); MEAN CORPUSCULAR HEMOGLOBIN 29.8 pg (28-32); MEAN CORPUSCULAR HGB CONC 32.8 g/dL (31-35); MEAN CORPUSCULAR VOLUME 90.8 fL (81-99); MONOCYTES # (AUTO) 0.6 (0.2-0.8); MONOCYTES % 7.2 % (4.4-11.3); NEUTROPHILS # (AUTO) 5.5 (2.1-6.9); NEUTROPHILS % 70.8 % (38.7-80.0); PLATELET COUNT 176 x10e3/uL (140-360)
[2022-08-18 06:40] LABS: ALBUMIN 3.1 g/dL (3.5-5.0); ALBUMIN/GLOBULIN RATIO 0.9 (0.8-2.0); ANION GAP 15.1 mmol/L (8-16); CALCIUM 8.7 mg/dL (8.4-10.2); CREATININE, SERUM 2.08 mg/dL (0.57-1.11); POTASSIUM 4.1 mmol/L (3.5-5.1)
[2022-08-18 07:04] LABS: CREATINE KINASE MB 4.5 ng/mL (0-5.0)
[2022-08-18] MEDS: INSULIN REGULAR, HUMAN 100 UNIT/1 ML SQ SCH ×2 (07:30→11:30)
[2022-08-18 08:18] VITALS: BP 161/64
[2022-08-18 08:21] VITALS: BP 161/64
[2022-08-18] MEDS ORDERED: ISOSORBIDE MONONITRATE 30 MG TAB CR PO SCH (09:00)
[2022-08-18] MEDS ORDERED: PANTOPRAZOLE SOD 40 MG TABEC PO SCH (09:00)
[2022-08-18] MEDS: APIXAB 2.5 MG TABLET PO SCH (09:19)
[2022-08-18] MEDS: METOPROLOL SUCCINATE 25 MG TAB XL PO SCH (09:20)
[2022-08-18] MEDS: AMIODARONE HCL 200 MG TAB PO SCH (09:21)
[2022-08-18] MEDS ORDERED: AMIODARONE HCL200 MG PO (11:22)
[2022-08-18 11:24] VITALS: BP 121/59
[2022-08-18] MEDS ORDERED: ONDANSETRON HCL 4 MG ORAL DISINTEGRATING TAB PO PRN (12:30)
[2022-08-19] MEDS ORDERED: AMIODARONE HCL 200 MG TAB PO SCH (09:00)
== END 2022-08-18 12:34 | disposition home or self-care (01) ==
LOC: ER 10:21 → ERHOLD 12:27 → MED/SURG3 15:27
PROVIDERS: ADMIT Internal Medicine; ATTEND Internal Medicine
DX: I48.0 Paroxysmal atrial fibrillation (principal); I13.0 Hypertensive heart and chronic kidney disease with heart failure and stage 1 through stage 4 chronic kidney disease, or unspecified chronic kidney disease; E11.22 Type 2 diabetes mellitus with diabetic chronic kidney disease; E11.65 Type 2 diabetes mellitus with hyperglycemia; N18.4 Chronic kidney disease, stage 4 (severe); I50.9 Heart failure, unspecified; R00.2 Palpitations; I25.10 Atherosclerotic heart disease of native coronary artery without angina pectoris; E78.5 Hyperlipidemia, unspecified; Z95.5 Presence of coronary angioplasty implant and graft; Z88.2 Allergy status to sulfonamides; Z88.8 Allergy status to other drugs, medicaments and biological substances; Z82.3 Family history of stroke; Z20.822 Contact with and (suspected) exposure to COVID-19
CPT/HCPCS: 36415 ×2; 70450; 71045; 80053 ×2; 80307; 81001; 82550 ×2; 82553 ×2; 82948 ×2; 83036; 84443; 84484 ×2; 85025 ×2; 85610; 85730; 93005; 94760; 97110; 97161; 99284; G0378 ×2; J7030 ×2; S0164; U0002

== ENCOUNTER 2022-09-23 08:21 | Emergency (ER) | payer MEDICARE ==
[~2022-09-23] VITALS: Ht 154.9 cm; Wt 65.8 kg
[~2022-09-23 08:21] MED LIST changes: +AMIODARONE HCL200 MG PO; +B-121000 MC2 PO; +ELIQUIS2.5 MG PO; +FEROSUL325 MG PO; +FERROUS SULFAT324 MG PO; +TOPROL XL25 MG PO; +preservision PO
[2022-09-23] MEDS ORDERED: SODIUM CHLORIDE 0.9% 500ML 500 ML IV ONE (08:45)
[2022-09-23 08:54] LABS: BASOPHILS % 0.4 % (0.0-1.0); EOSINOPHILS # (AUTO) 0.1 (0.0-0.4); EOSINOPHILS % 1.3 % (0.0-6.0); HEMATOCRIT 39.8 % (34.2-44.1); HEMOGLOBIN 12.4 g/dL (12.0-16.0); LYMPHOCYTES # (AUTO) 0.7 (1.0-3.2); LYMPHOCYTES % 14.1 % (18.0-39.1); MEAN CORPUSCULAR HEMOGLOBIN 30.4 pg (28-32); MEAN CORPUSCULAR HGB CONC 31.2 g/dL (31-35); MEAN CORPUSCULAR VOLUME 97.5 fL (81-99); MONOCYTES # (AUTO) 0.5 (0.2-0.8); MONOCYTES % 10.3 % (4.4-11.3); NEUTROPHILS # (AUTO) 3.8 (2.1-6.9); NEUTROPHILS % 73.5 % (38.7-80.0); PLATELET COUNT 142 x10e3/uL (140-360); RED BLOOD COUNT 4.08 x10e6/uL (3.6-5.1); RED CELL DISTRIBUTION WIDTH 13.1 % (11.7-14.4)
[2022-09-23 09:13] LABS: ALBUMIN 3.4 g/dL (3.5-5.0); ALBUMIN/GLOBULIN RATIO 0.9 (0.8-2.0); ANION GAP 15.3 mmol/L (8-16); CALCIUM 8.4 mg/dL (8.4-10.2); CREATININE, SERUM 2.89 mg/dL (0.57-1.11); POTASSIUM 4.3 mmol/L (3.5-5.1)
[2022-09-23 09:14] LABS: INR 0.97; PROTHROMBIN TIME 13.8 seconds (11.9-14.5)
[2022-09-23 09:15] LABS: PARTIAL THROMBOPLASTIN TIME 41.3 seconds (23.8-35.5)
[2022-09-23 09:32] LABS: CREATINE KINASE MB 4.3 ng/mL (0-5.0); THYROID STIMULATING HORMONE 7.713 uIU/mL (0.350-4.940)
[2022-09-23 09:37] LABS: CLARITY,URINE CLEAR (CLEAR); COLOR,URINE YELLOW (YELLOW); KETONES,URINE NEGATIVE (NEGATIVE); LEUKOCYTE ESTERASE ,URINE NEGATIVE (NEGATIVE); NITRITE,URINE NEGATIVE (NEGATIVE); PROTEIN,URINE DIPSTICK 2+ (NEGATIVE); URINE UROBILINOGEN 0.2 mg/dL (0.2 - 1)
[2022-09-23 09:38] LABS: BACTERIA,URINE FEW /HPF; EPITHELIAL CELLS,URINE FEW /LPF; WBC,URINE (MAN) 0-5 /HPF (0-5)
[2022-09-23] MEDS ORDERED: HYDRALAZINE HCL 20 MG/ML VIAL IV STA (10:04)
[2022-09-23] MEDS ORDERED: METOPROLOL TARTRATE 25 MG TAB PO ONE (10:15)
[2022-09-23 10:50] VITALS: BP 174/83
== END 2022-09-23 10:51 | disposition home or self-care (01) ==
LOC: ER 08:32
DX: R53.1 Weakness (principal); J10.1 Influenza due to other identified influenza virus with other respiratory manifestations; I12.9 Hypertensive chronic kidney disease with stage 1 through stage 4 chronic kidney disease, or unspecified chronic kidney disease; E11.22 Type 2 diabetes mellitus with diabetic chronic kidney disease; N18.9 Chronic kidney disease, unspecified; I50.9 Heart failure, unspecified; I48.91 Unspecified atrial fibrillation; I25.10 Atherosclerotic heart disease of native coronary artery without angina pectoris; D64.9 Anemia, unspecified; E78.5 Hyperlipidemia, unspecified; Z95.5 Presence of coronary angioplasty implant and graft; Z20.822 Contact with and (suspected) exposure to COVID-19
CPT/HCPCS: 36415; 70450; 71045; 80053; 81001; 82550; 82553; 83735; 83880; 84443; 84484; 85025; 85610; 85730; 87086; 87400; 93005; 99284; J0360; J7040; U0002